=== PATIENT | female | born 2000 | race Caucasian/White ===

== ENCOUNTER 2023-10-07 09:01 | Outpatient (AMB) | payer OTHER, SELFPAY ==
--- NOTE | 2023-10-07 09:23 | MHC.PC.OV ---
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 Is last menstrual period known: Yes Last menstrual period: 10/01/23 Allergies No Known Allergies Allergy (Verified 10/07/23 09:26) Medication List - Last Reconciled 10/07/23 by Marly Velasco PA-C valacyclovir 2,000 mg PO Q12H PRN Tobacco use date assessed: 10/07/23 Dental Screening Dental Screen Date: 10/07/23 Did you have a dental visit in the last 12 months?: Yes Did you have a dental problem in the last 6 months where you did not have access to dental care?: No Was dental information given to patient?: Patient has dentist HPI NPV HPI Details Patient is a 23-year-old female who presents today to reestablish care and for a physical exam. She was last seen by myself last year for right knee pain and has been following with ortho since then. She states that her knee is unstable and she plans to have a follow up soon to discuss next steps. Denies any acute concerns today. Overall feeling well. 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 She is trying to remain active and eat well. Follows with [facility]. [facility] Medical History Recurrent herpes labialis Obesity, Class I, BMI 30-34.9 Family History (Updated 10/07/23 @ 09:29 by Khushbu Alonzo CMA) Maternal Aunt No problems noted. 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 1. Little interest or pleasure in doing things: not at all 2. Feeling down, depressed, or hopeless: not at all 3. Trouble falling or staying asleep, or sleeping too much: not at all 4. Feeling tired or having little energy: not at all 5. Poor appetite or overeating: not at all 6. Feeling bad about yourself - or that you are a failure or have let yourself or your family down: not at all 7. Trouble concentrating on things, such as reading the newspaper or watching television: not at all 8. Moving or speaking so slowly that other people could have noticed. Or the opposite - being so fidgety or restless that you have been moving around a lot more than usual: not at all 9. Thoughts that you would be better off or of hurting yourself in some way: not at all Total score: 0 Depression Screening Interpretation: Negative Depression Screening Done: Yes 85606 - PHQ-9 Billing: Yes Source: Developed by Drs. Jake Mcdonald, Lucero Abrams, Iraj Lopez and colleagues, with an educational tiara from [employer]. Thrive Questionnaire Date Thrive assessed: 10/07/23 I am a: Patient What is your living situation today?: I have a steady place to live Within the past 12 months, did the food you bought not last and you didn't have the money to get more?: Never true Within the past 12 months, did you worry whether your food would run out before you got money to buy more?: Never true Do you have trouble paying for medicines?: No Do you have trouble getting transportation to medical appointments?: No Do you have trouble paying your heating and electricity bill?: No Do you have trouble taking care of your child, family member or friend?: No Do you have trouble with day-to-day activities such as bathing, preparing meals, shopping, managing finances, etc.?: No Are you currently unemployed and looking for a job?: No Are you interested in more education?: No Please select the resources that you would like help with: None Currently or been in a relationship where the following occur: No concerns reported THRIVE Score: 0 AUDIT C Alcohol Use Questionnaire (AUDIT-C) 1. How often do you have a drink containing alcohol?: 2-4 times a month 2. How many drinks containing alcohol do you have on a typical day when you are drinking?: 1 or 2 3. How often do you have six or more drinks on one occasion?: Less than monthly (once a year) Total Score: 3 TROY-7 AMB Questionnaire TROY-7 Date TROY - 7 assessed: 10/07/23 Feeling nervous, anxious, or on edge: 0 = Not at all Not being able to stop or control worryin = Not at all Worrying too much about different things: 0 = Not at all Trouble relaxin = Not at all Being so restless that it is hard to sit still: 0 = Not at all Becoming easily annoyed or irritable: 0 = Not at all Feeling afraid as if something awful might happen: 0 = Not at all Total TROY-7 score (0-4 normal; 5-9 mild; 10-14 moderate; 15-21 severe): 0 Source: Developed by Drs. Jake Mcdonald, Lucero Abrams, Iraj Lopez and colleagues, with an educational tiara from [employer]. TROY-7 Assessment Billing TROY-7 Assessment Tool: TROY-7 Assessment 11452 Physical exam (Primary Care) Vital Signs: Last Vital Signs Temp 98.4 F 10/07/23 09:30 Pulse 54 10/07/23 09:30 Resp 12 10/07/23 09:30 BP 98/70 10/07/23 09:30 Pulse Ox 98 10/07/23 09:30 Oxygen Delivery Method Room Air 10/07/23 09:30 BMI result Body Mass Index 31.8 Tobacco/Smoking Status: Tobacco use Status Tobacco use date assessed 10/07/23 10/07/23 09:32 Patient Tobacco Use Status Never used Tobacco 10/07/23 09:32 e-Cigarette/Vaping Use Never Used 10/07/23 09:32 PHQ-9: PHQ-9 Score PHQ-9: Total score 0 10/07/23 09:35 Depression Screening Interpretation: Negative Thrive Assessment: Date of Thrive Assessment Date Thrive assessed 10/07/23 10/07/23 09:35 Currently or been in a relationship where the following occur: No concerns reported Const Orientation/consciousness: patient oriented x3 HENMT Ears: hearing grossly normal bilaterally and TM's normal bilaterally General nose exam: No nasal polyps present Face and sinus: Yes sinuses nontender Mouth: Normal oral and palatal mucosa present Eyes Pupils: Equal, round and reactive pupils present EOM: EOMs intact bilaterally Neck Neck: Yes full ROM and Yes no lymphadenopathy Thyroid: Thyroid normal Chest Chest palpation & inspection: normal inspection of the chest Resp Auscultation: clear to auscultation bilaterally Cardio Rate: regular rate Rhythm: regular rhythm Heart sounds: S1 normal heart sound present and S2 normal heart sound present Peripheral pulses: Peripheral pulses 2+ throughout GI Other: Soft, nontender Auscultation: normal bowel sounds Rectal Exam - Female: deferred General: Yes no CVA tenderness Back/Spine/Pelvis Other: Nontender Back: no CVA tenderness Skin General skin exam: no rashes or lesions noted Neuro General: patient oriented x3, gait normal, CN's II-XI intact bilaterally and deep tendon reflexes 2+ bilaterally Cranial nerves: Yes Equal, round and reactive pupils present Motor exam (neuro): 5/5 motor strength present throughout Sensory Exam: double simultaneous stimulation for sensation normal Coordination: [id number] test normal and Romberg test negative Extrem General: Yes normal to inspection and Yes full ROM Psych Affect: normal affect Attitude: cooperative Thought process: Normal thought process present Thought content: Normal thought content present Insight: Good insight present (Psych) Judgement: Good judgement present (Psych) Assessment and Plan Assessment & Plan (1) Routine general medical examination at a health care facility: Code(s): Z00.00 - Encounter for general adult medical examination without abnormal findings Plan: reviewed. labs ordered. will follow up pending tests (2) Right knee pain: Code(s): M25.561 - Pain in right knee Qualifiers: Chronicity: chronic Qualified Code(s): M25.561 - Pain in right knee; G89.29 - Other chronic pain Plan: continue follow up with [facility]. Orders: Orders Comprehensive [place]. Panel Fast Today M25.561 - Pain in right knee, Z00.00 - Encounter for general adult medical examination without abnormal findings, Z13.220 - Encounter for screening for lipoid disorders Lipid Panel Today M25.561 - Pain in right knee, Z00.00 - Encounter for general adult medical examination without abnormal findings, Z13.220 - Encounter for screening for lipoid disorders TSH reflex Free T4 Today M25.561 - Pain in right knee, Z00.00 - Encounter for general adult medical examination without abnormal findings, Z13.220 - Encounter for screening for lipoid disorders Vitamin B12 and Folate Today M25.561 - Pain in right knee, Z00.00 - Encounter for general adult medical examination without abnormal findings, Z13.220 - Encounter for screening for lipoid disorders Complete Blood Count Auto Diff Today M25.561 - Pain in right knee, Z00.00 - Encounter for general adult medical examination without abnormal findings, Z13.220 - Encounter for screening for lipoid disorders Medications: New valacyclovir 2,000 mg (2 x 1 gram) PO Q12H 1 day PRN 30 tabs 1RF outbreak Coding Level of Care Code Est Pt Prev Care 18-39y(39250) Diagnoses Routine general medical examination at a health care facility Z00.00 Chronic pain of right knee M25.561; G89.29 Chronicity: chronic Additional Codes TROY-7 Assessment Billing - TROY-7 Assessment Tool: TROY-7 Assessment 63642 ([id number])
[2023-10-07 09:30] VITALS: BP 98/70; PULSE 54; RESP 12; TEMP 36.9; O2SAT 98; BMI 31.8
== END 2023-10-07 10:02 | disposition home or self-care (01) ==
PROVIDERS: PCP Physician Assistant; Visit Provider Physician Assistant
DX: Z00.00 Encounter for general adult medical examination without abnormal findings (principal); M25.561 Pain in right knee; G89.29 Other chronic pain
CPT/HCPCS: 99395

== ENCOUNTER 2023-10-07 10:04 | Outpatient (REF) | payer OTHER, SELFPAY ==
[2023-10-07 10:52] LABS: MANUAL DIFF FLAG NO
[2023-10-07 11:11] LABS: Basophils Absolute Auto 0.1 X10*3/uL (0.0-0.2); Basophils Percent Auto 0.7 % (0-2); Eosinophils Absolute Auto 0.1 X10*3/uL (0.0-0.4); Eosinophils Percent Auto 1.3 % (0-4); Hematocrit 40.2 % (37.0-47.0); Hemoglobin 12.7 g/dl (12.0-16.0); Imm Gran Abs Auto 0.02 X10*3/uL (0.00-0.03); Imm Gran Pct Auto 0.3 % (0.0-0.4); Lymphocytes Absolute Auto 2.2 X10*3/uL (1.2-4.9); Lymphocytes Percent Auto 31.4 % (20-40); Mean Corpuscular HGB Conc 31.6 g/dl (31.0-35.0); Mean Corpuscular Hemoglobin 27.7 pg (27.0-33.0); Mean Corpuscular Volume 87.8 fL (80.0-98.0); Mean Platelet Volume 10.9 fL (9.4-12.3); Monocytes Absolute Auto 0.5 X10*3/uL (0.1-1.2); Monocytes Percent Auto 7.7 % (2-11); Neutrophils Absolute Auto 4.1 x10*3/uL (2.0-8.3); Neutrophils Percent Auto 58.6 % (45-73); Platelet Count 251 X10*3/uL (160-400); Red Blood Count 4.58 X10*6/uL (4.20-5.50); Red Cell Distribution Width 14.4 % (11.0-16.0); White Blood Count 6.9 X10*3/uL (4.8-10.8)
[2023-10-07 11:53] LABS: Alanine Aminotransferase 12 U/L (0-31); Albumin Level 4.8 g/dL (3.5-5.0); Alkaline Phosphatase 66 U/L (39-117); Anion Gap 10 (12-20); Aspartate Amino Transferase 15 U/L (5-31); Blood Urea Nitrogen 8 mg/dL (9-16); Calcium 9.9 mg/dL (8.4-10.2); Carbon Dioxide 28 mmol/L (22-29); Chloride 108 mmol/L (96-108); Cholesterol 142 mg/dL (<200); Estimated Glomerular Filt Rate > 60; Glucose Fasting 83 mg/dL (60-99); HDL Cholesterol 58 mg/dL (>40); LDL Cholesterol Calculated 71 mg/dL (<100); Potassium 3.8 mmol/L (3.3-5.1); Sodium 142 mmol/L (135-145); Total Protein 7.3 g/dL (6.5-8.0); Triglycerides 66 mg/dL (<150)
[2023-10-07 12:08] LABS: TSH reflex Free T4 0.83 uIU/mL (0.32-4.0)
[2023-10-07 12:20] LABS: Folate 11.7 ng/mL (> or = 4.0); Vitamin B12 314 pg/mL (200-900)
== END 2023-10-07 10:05 | disposition home or self-care (01) ==
LOC: HO.WFDLDS 10:04
PROVIDERS: Visit Provider Physician Assistant
DX: Z00.00 Encounter for general adult medical examination without abnormal findings (principal); Z13.220 Encounter for screening for lipoid disorders; M25.561 Pain in right knee
CPT/HCPCS: 36415; 80053; 80061; 82607; 82746; 84443; 85025

== ENCOUNTER 2023-11-17 08:55 | Outpatient (AMB) | payer OTHER, SELFPAY ==
--- NOTE | 2023-11-17 08:56 | MHC.OFFWIV ---
Intake Vital Signs 11/17/23 09:01 Height 5 ft 7 in Weight 208 lb 8 oz BMI 32.7 BP 102/70 Blood Pressure Location Rt brachial Position Sitting Respiration 16 Pulse 51 Pulse Source Pulse Oximeter Temp 97.8 F Temp Source Oral Pulse Oximetry (%) 97 Oxygen Delivery Method Room Air Intake Visit Reasons: est/ sore throat/ testing Intake Note: patient here c/o sore throat. 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 Her symptoms progressively gotten worse yesterday. She notes that she usually feels this way when she has strep throat. She denies any other symptoms. [facility] Medical History Recurrent herpes labialis Obesity, Class I, BMI 30-34.9 Family History (Updated 10/07/23 @ 09:29 by Khushbu Alonzo CMA) Maternal Aunt No problems noted. 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 Current occupational exposures/hazards: No Cognitive needs: No Hearing needs: No Vision needs: No Female Reproductive History Menstrual Date of last menstrual period: 11/17/23 Review of Systems Const Details: Const Denies chills, Denies fatigue, Denies fever(s), Denies headache(s) and Denies weakness ENT Reports as per HPI Resp Denies cough, Denies dyspnea, Denies wheezing and Denies other (shortness of breath) Cardio Denies chest pain, Denies lightheadedness, Denies dyspnea and Denies other (palpitations) Neuro Denies dizziness, Denies headache(s), Denies numbness, Denies tingling and Denies weakness Psych Denies anxiety, Denies depression, Denies memory?loss Endo Denies fatigue Aller/Immun Denies wheezing Physical Exam Vital Signs: Last Vital Signs Temp 97.8 F 11/17/23 09:01 Pulse 51 11/17/23 09:01 Resp 16 11/17/23 09:01 BP 102/70 11/17/23 09:01 Pulse Ox 97 11/17/23 09:01 Oxygen Delivery Method Room Air 11/17/23 09:01 BMI result Body Mass Index 32.7 Const Other: Const General: well developed; No acute distress Nutritional Appearance: well nourished Orientation/consciousness: patient oriented x3 HEENT Head is normocephalic Bilateral ear canal and TM are normal Nasal turbinates and oropharynx are pink and moist. No tonsillar edema or exudates. No petechia Sinuses are nontender with palpation No auricular or cervical lymphadenopathy Eyes General: appearance normal, both eyes and all related structures Pupils: Equal, round and reactive pupils present EOM: EOMs intact bilaterally Resp Effort & Inspection: normal respiratory effort Auscultation: clear to auscultation bilaterally Cardio Rate: regular rate Rhythm: regular rhythm Heart sounds: S1 normal heart sound present, S2 normal heart sound present, no gallops, no murmurs and no rubs Bruits: no abdominal aortic bruits and no carotid bruits Neuro General: patient oriented x3 and gait normal, no focal neuro deficit Cranial nerves: Yes Equal, round and reactive pupils present Psych Affect: normal affect Results AMB Rapid Strep AMB Rapid Strep Negative Last Edit by Indira Medellin on 11/17/23 12:16 Results Reviewed Results Reviewed: Laboratory Last Values Strep Scn Rapid Clinic Negative 11/17/23 09:25 Assessment & Plan Assessment & Plan (1) Pharyngitis: Code(s): J02.9 - Acute pharyngitis, unspecified Plan: Oropharynx is pink and moist. No tonsillar edema or exudates. No petechia Rapid strep test is negative Bilateral ear canal and TM are normal Likely viral infection May take Tylenol ibuprofen for pain or discomfort Adequate hydration encouraged Follow-up with worsening or new symptoms Verbalized understanding and agreed with the treatment plan Patient sent a portal message after her visit, requesting antibiotics. Amoxicillin 500 mg twice daily sent. Orders: Orders AMB Rapid Strep Screen Today Z13.9 - Encounter for screening, unspecified Coding Level of Care Code New Pt Level 3 (20366) Diagnoses Pharyngitis J02.9
[2023-11-17 09:01] VITALS: BP 102/70; PULSE 51; RESP 16; TEMP 36.6; O2SAT 97; BMI 32.7
== END 2023-11-17 09:26 | disposition home or self-care (01) ==
LOC: HO.HMGWIW 08:55
PROVIDERS: PCP Physician Assistant
DX: Z13.9 Encounter for screening, unspecified (principal); J02.9 Acute pharyngitis, unspecified
CPT/HCPCS: 87880; 99203

== ENCOUNTER 2024-08-03 08:28 | Outpatient (AMB) | payer OTHER, SELFPAY ==
--- NOTE | 2024-08-03 08:34 | A.OFFPC_ITS ---
Vital Signs 08/03/24 08:35 Height 5 ft 7 in Weight 197 lb 8 oz BMI 30.9 BP 102/72 Blood Pressure Location Rt brachial Position Sitting Respiration 14 Pulse 57 Pulse Source Pulse Oximeter Pulse Oximetry (%) 97 Oxygen Delivery Method Room Air Intake Visit Reasons: Med Review Intake Note: Discuss focus and concentration Dental Associate Required: No Allergies No Known Allergies Allergy (Verified 08/03/24 08:40) Medication List - Last Reconciled 08/03/24 by Marly Velasco PA-C valacyclovir 2,000 mg (2 x 1 gram) PO Q12H PRN 1 day Tobacco use date assessed: 10/07/23 Dental Screening Dental Screen Date: 08/03/24 Did you have a dental visit in the last 12 months?: Yes Did you have a dental problem in the last 6 months where you did not have access to dental care?: No Was dental information given to patient?: Patient has dentist HPI Med Review HPI Details Patient is a 24-year-old female who presents today with concerns of possible ADD. She states that all of her life she has had difficulty with concentrating and now that she is an adult and working she has a hard time hitting certain guidelines. All throughout school and she had an IEP which allowed her some accommodations for this. She has never been on medication for this but would like to go on something to help her with her productivit. She states that she is stressed because she is very scattered brain and despite making lists, waking up early, having a quiet workspace she still has issues with staying on task. No SI/HI. States that sometimes this does make her feel a bit upset that she is unable to complete certain things and also makes her feel stressed as she feels like she has too much to do. Took an online questionnaire which showed that she had ADD. [facility] Medical History Recurrent herpes labialis Obesity, Class I, BMI 30-34.9 Family History (Updated 10/07/23 @ 09:29 by Khushbu Alonzo CMA) Maternal Aunt No problems noted. 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 1. Little interest or pleasure in doing things: not at all 2. Feeling down, depressed, or hopeless: not at all 3. Trouble falling or staying asleep, or sleeping too much: not at all 4. Feeling tired or having little energy: several days 5. Poor appetite or overeating: not at all 6. Feeling bad about yourself - or that you are a failure or have let yourself or your family down: not at all 7. Trouble concentrating on things, such as reading the newspaper or watching television: several days 8. Moving or speaking so slowly that other people could have noticed. Or the opposite - being so fidgety or restless that you have been moving around a lot more than usual: several days 9. Thoughts that you would be better off or of hurting yourself in some way: not at all Total score: 3 Depression Screening Interpretation: Positive Depression Screening Follow-up: Existing condition and Follow-up Visit Requested Depression Screening Done: Yes 81768 - PHQ-9 Billing: Yes Source: Developed by Drs. Jake Mcdonald, Lucero Abrams, Iraj Lopez and colleagues, with an educational tiara from [employer]. Thrive Questionnaire Date Thrive assessed: 07/21/24 I am a: Patient What is your living situation today?: I have a steady place to live Within the past 12 months, did the food you bought not last and you didn't have the money to get more?: Never true Within the past 12 months, did you worry whether your food would run out before you got money to buy more?: Never true Do you have trouble paying for medicines?: No Do you have trouble getting transportation to medical appointments?: No Do you have trouble paying your heating and electricity bill?: No Do you have trouble taking care of your child, family member or friend?: No Do you have trouble with day-to-day activities such as bathing, preparing meals, shopping, managing finances, etc.?: No Are you currently unemployed and looking for a job?: No Are you interested in more education?: No Please select the resources that you would like help with: None Currently or been in a relationship where the following occur: No concerns reported THRIVE Score: 0 AUDIT C Alcohol Use Questionnaire (AUDIT-C) 1. How often do you have a drink containing alcohol?: Monthly or less 2. How many drinks containing alcohol do you have on a typical day when you are drinking?: 1 or 2 3. How often do you have six or more drinks on one occasion?: Never Total Score: 1 TROY-7 AMB Questionnaire TROY-7 Date TROY - 7 assessed: 08/03/24 Feeling nervous, anxious, or on edge: 1 = Several days Not being able to stop or control worryin = Not at all Worrying too much about different things: 1 = Several days Trouble relaxin = Several days Being so restless that it is hard to sit still: 1 = Several days Becoming easily annoyed or irritable: 0 = Not at all Feeling afraid as if something awful might happen: 0 = Not at all Total TROY-7 score (0-4 normal; 5-9 mild; 10-14 moderate; 15-21 severe): 4 Source: Developed by Drs. Jake Mcdonald, Lucero Abrams, Iraj Lopez and colleagues, with an educational tiara from [employer]. TROY-7 Assessment Billing TROY-7 Assessment Tool: TROY-7 Assessment 26681 Physical exam (Primary Care) Vital Signs: Last Vital Signs Pulse 57 08/03/24 08:35 Resp 14 08/03/24 08:35 BP 102/72 08/03/24 08:35 Pulse Ox 97 08/03/24 08:35 Oxygen Delivery Method Room Air 08/03/24 08:35 BMI result Body Mass Index 30.9 Tobacco/Smoking Status: Tobacco use Status Tobacco use date assessed 10/07/23 08/03/24 08:36 Patient Tobacco Use Status Never used Tobacco 08/03/24 08:36 e-Cigarette/Vaping Use Never Used 08/03/24 08:36 PHQ-9: PHQ-9 Score PHQ-9: Total score 3 08/03/24 08:58 Depression Screening Interpretation: Positive Depression Screening Follow-up: Existing condition and Follow-up Visit Requested Thrive Assessment: Date of Thrive Assessment Date Thrive assessed 07/21/24 08/03/24 08:36 Currently or been in a relationship where the following occur: No concerns reported Const Orientation/consciousness: patient oriented x3 HENMT Ears: hearing grossly normal bilaterally Neck Thyroid: Thyroid normal Lymphatic: no lymphadenopathy noted Resp Auscultation: clear to auscultation bilaterally Cardio Rate: regular rate Rhythm: regular rhythm Heart sounds: S1 normal heart sound present and S2 normal heart sound present GI Inspection: Yes normal to inspection Palpation (GI): Soft to palpation and Other GI palpation findings present (nontender, no cva tenderness) Auscultation: normoactive bowel sounds Rectal Exam - Female: deferred Skin General skin exam: no rashes or lesions noted Neuro General: patient oriented x3, gait normal and no focal motor deficits Results Reviewed Results Reviewed: Laboratory Tests 10/07/23 10:06 WBC 6.9 RBC 4.58 Hgb 12.7 Hct 40.2 Plt Count 251 Sodium 142 Potassium 3.8 Chloride 108 Carbon Dioxide 28 Anion Gap 10 L Creatinine 0.87 Estimated GFR > 60 Fasting Glucose 83 AST 15 ALT 12 Triglycerides 66 Cholesterol 142 LDL Cholesterol, Calc 71 HDL Cholesterol 58 Vitamin B12 314 TSH 0.83 Coding Level of Care Code Est Pt Level 4 (71299) Complex EM visit Add On G2211 Diagnoses ADD (attention deficit disorder) F98.8 Mixed anxiety and depressive disorder F41.8 Additional Codes TROY-7 Assessment Billing - TROY-7 Assessment Tool: TROY-7 Assessment 50608 ([id number]) PHQ-9 - 15430 - PHQ-9 Billing: Yes ([id number]) Assessment & Plan Assessment & Plan (1) ADD (attention deficit disorder): Code(s): F98.8 - Other specified behavioral and emotional disorders with onset usually occurring in childhood and adolescence Category: Medical Plan: Labs ordered today. We will follow up pending test results. We will trial Wellbutrin. Discussed risks and benefits and adverse effects of this medication. We did discuss possibly seeing Behavioral Health but she wants to hold off on this at this point. (2) Mixed anxiety and depressive disorder: Code(s): F41.8 - Other specified anxiety disorders Category: Medical Plan: As above. Orders: Orders Vitamin B12 and Folate Today F98.8 - Other specified behavioral and emotional disorders with onset usually occurring in childhood and adolescence Comprehensive Met. Panel Today F98.8 - Other specified behavioral and emotional disorders with onset usually occurring in childhood and adolescence TSH reflex Free T4 Today F98.8 - Other specified behavioral and emotional disorders with onset usually occurring in childhood and adolescence Complete Blood Count Auto Diff Today F98.8 - Other specified behavioral and emotional disorders with onset usually occurring in childhood and adolescence Medications: New bupropion HCl XL (Wellbutrin XL) 150 mg PO QAM 30 tabs 1RF
[2024-08-03 08:35] VITALS: BP 102/72; PULSE 57; RESP 14; O2SAT 97; BMI 30.9
--- OUTSIDE RECORDS SUMMARY | 2024-08-03 08:42 | XMS_ITS | Data Portability ---
Author Organization [facility], [facility] Address [address] [place] [address] Care Team Providers Care Seo Strategist Name Role Phone RADHA ALLEN Primary Care Provider Assessment Encounter Date Assessment Date Assessment LastModified by Organization Details LastModified Time 01/20/2024 01/20/2024 HISTORY AND PHYSICAL Patient date of :2000 Admitting diagnosis:Right knee ACL graft tear Planned procedure:Right knee arthroscopy with revision ACL reconstruction using autogenous quadriceps Surgeon: Andrew Ivory M.D. HPI:Right knee arthroscopy, revision ACL [id number]- year-old woman status post right knee ACL reconstruction July 1999 complains of instability events, taken to the operating room for arthroscopy with possible revision. Past medical history: Review of systems: Negative Medications:None Allergies: None Past surgical history:Right knee ACL reconstruction Social history: Alcohol use: Social Smoker: Negative PHYSICAL EXAMINATION: The patient is well appearing and in no apparent distress. Alert and oriented x3. Height 5 feet 8 inches Weight 230 pounds Gait: symmetri HEENT: Benign Chest: Clear to auscultation bilaterally Heart: Regular rate and rhythm, no murmurs or gallops Abdomen: Soft and nontender, no masses Neurovascular: Within normal limits Skin: Within normal limits Pertinent extremity exam:Right knee full motion with 1+ Kavitha, soft endpoint DIAGNOSIS:Right knee possible ACL graft tear PLAN:The patient is taken to the operating room for right knee arthroscopy, possible revision ACL reconstruction using quadriceps autograft.Specifi c risks and issues associated with reconstruction of the anterior cruciate ligament were discussed in detail. These include infection, graft failure estimated 4%, need for hardware insertion, DVT or PE, potential need for allograft use, injury to the infrapatellar branch saphenous nerve with resultant numbness. The patient understands the need for activity restriction and rehabilitation services in the postoperative period and understands that noncompliance will likely result in a compromised and results. The patient understands that arthritis will likely develop in the knee with or without reconstruction and that surgery has not been recommended to prevent the development of arthritis. All questions have been answered to the patient's satisfaction and I believe the patient has made an informed choice to proceed with surgery. [email or web address] Not available 01/20/2024 09:54:33 Plan of Treatment Reminders Order Date Submit Date Provider Last Modified By Organization Details Last Modified Time Details Appointments None recorded. Lab None recorded. Referral physical therapist referral - Dx: Grade III/IV changes Patella and Trochlea, Intact ACL Graft. VMO Strengthe arjun, Hip Abductor, Glute Med Strengthe arjun, Quad & Hamstring Stretchin g, Patella Mobilizat ion, Olivo Taping at your discretio n. 2023 024 [email or web address] [place], [address], [address], [place], [address], 4 11:58:12 Procedures None recorded. Surgeries None recorded. Imaging XR, knee, 4 or more view - room 222 right knee 2023 024 [facility], [address], [address], [place], [address], 4 09:00:52 Medication Orders None recorded. Patient TargetsNo targets recorded. Patient InstructionsNo instructions recorded. 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 VMO Strengthening, Hip Abductor, Glute Med Strengthening, Quad & Hamstring Stretching, Patella Mobilization, Olivo Taping at your discretion. Referring Physician: Cade Rai, Orthopedic Surgery, [id number] Encounter Date: 02/10/2024 Results Created Date Observation Date Name Description Value Unit Range Abnormal Flag Note LastModifiedBy Organization Detail LastModifiedTime 11/23/19 24 11/23/2023 XR, knee, 4 or more view http:/ [email or web address] ?Encry pted=s hAaTro YD8dLq bEUv6g %2BXZw aYqtaq 0bqfl% 2Fg9IQ a4ajBk vP9nXo QUaueC m3YtLR FvZlgJ JJ8mAn HZtai3 2x2887 AC0Kra XmCVaX eUC8mr 84%3D INTERFACE [facility] [address], [place], [address], 11/23/2023 09:00:52 11/23/19 24 11/23/2023 XR, knee, 4 or more view [email or web address] ?Encry pted=s hAaTro YD8dLq bEUv6g %2BXZw aYqtaq 0bqfl% 2Fg9IQ a4ajBk vP9nXo QUaueC m3YtLR FvZlgJ JJ8[place] HZtai3 6s4015 AC0Kra XmCVaX eUC8mr 84%3D INTERFACE [facility] [address], [place], [address], 11/23/2023 09:00:54 11/27/19 24 11/12/2019 imagi ng/di agnos tic resul t No observ ation record ed. [email or web address] Not Available 10/30 21:52:25 11/27/19 24 11/27/2022 imagi ng/di agnos tic resul t No observ ation record ed. [email or web address] Not Available 10/30 21:52:37 Result Notes None recorded. Problems Name Problem SNOMED Code Status Onset Date Resolution Date Notes Provider Name and Address Organization Details Recorded Time No complaint s 484276171 Active Status: 'I'; Not Available [facility] 4 09:11:53 Chondroma lacia of bilateral patellas 179525269449 35225 Active 2023 Cade Rai PA-C [address], [place], [address] , [facility] 4 07:11:17 Rupture of anterior cruciate ligament of right knee 602118218496 77796 Active 2023 Cade Rai PA-C [address], [place], [address] , [facility] 4 09:34:40 Chondroma lacia of right patella 964426753356 77670 Active 2023 Cade Rai PA-C [address], [place], [address] , [facility] 4 08:33:35 Sprain of anterior cruciate ligament of knee 735599176 Active 2016 Problem Code: S83.511A ; Problem Code Type: ICD-10; Status: 'A'; Not Available [facility] 4 10:57:41 Problem Notes None recorded. Procedures Surgical History None recorded. Imaging Results Imaging Date Name Status LastModified by [facility] Details LastModified Time 11/23/2023 XR, knee, 4 or more view completed INTERFACE [facility] [address], [place], [address], 11/23/2023 09:00:52 11/23/2023 XR, knee, 4 or more view completed INTERFACE [facility] [address], [place], [address], 11/23/2023 09:00:54 11/12/2019 imaging/diag nostic result completed Information not available 11/27/2023 21:52:25 11/27/2022 imaging/diag nostic result completed Information not available 11/27/2023 21:52:37 Procedure Notes None recorded. Medical Equipment None Reported. Allergies No known drug allergies Medications Name Sig Start Date Stop Date Status Note LastModified by Organization Details LastModified Time amoxicillin 500 mg capsule active Not Available Not Available Not Available aspirin 325 mg tablet Take 1 tablet every day by oral route. 2023 active Not Available Not Available Not Avai lable benzonatate 200 mg capsule 11/22 completed Not Available Not Available Not Available valacyclovi r 1 gram tablet TAKE 2 TABLETS (2000 MG) BY MOUTH EVERY 12 HOURS NEEDED FOR OUTBREAK FOR ONE DAY active Not Available Not Available No t Available penicillin V potassium 500 mg tablet 01/13 completed Not Available Not Available Not Available aspirin 325 mg tablet,adam yed release TAKE 1 TABLET BY MOUTH ONCE DAILY active Not Available Not Available No t Available cephalexin 500 mg capsule TAKE 1 CAPSULE BY MOUTH TWICE DAILY FOR 10 DAYS 11/22 completed Not Available Not Available Not Available oxycodone 5 mg tablet TAKE 1 TABLET BY MOUTH EVERY 4 TO 6 HOURS NEEDED FOR 7 DAYS FOR POSTOPERA TIVE PAIN active Not Available Not Available No t Available oxycodone HCl-oxycodo ne-ASA 1-2 tabs q 4-6 hrs prn pain X 2 days and reduce to 1 tab q 4-6 hrs prn pain for the next 6 days. 11/22 completed Statu s: 'Curr ent'; Not Available Not Available Not Available Vitals Date Recorded Body height Body mass index (BMI) Body weight Provider Name and Address Organization Details Last Updated DateTime 11/23/2023 172.72 cm 35 kg/m2 807020.25 g Cade Rai PA-C [address] [facility] [address], [place], [address], [facility] 11/23/2023 08:50:00 Date Recorded Body height Body mass index (BMI) Body weight Heart rate Body temperature Systolic blood pressure Diastolic blood pressure Provider Name and Address Organization Details Last Updated DateTime 172.72 cm 35 kg/m2 656876. 25 g 72 /min 97.2 [degF] 132 mm[Hg] 77 mm[Hg] Luisa Lanza [facility] 09:16:41 Date Recorded Body height Body mass index (BMI) Body weight Body temperature Provider Name and Address Organization Details Last Updated DateTime 02/10/2024 172.72 cm 35 kg/m2 966671.25 g 98.1 [degF] Cade Rai PA-C [address], [facility] [place], [address] , [facility] 02/10/2024 08:08:10 Date Recorded Body height Body mass index (BMI) Body weight Body temperature Provider Name and Address Organization Details Last Updated DateTime 04/11/2024 172.72 cm 35 kg/m2 034145.25 g 98 [degF] Cade Rai PA-C [address], [place], [address] , [place] [facility] 04/11/2024 08:09:35 Social History None recorded. Functional Status None recorded. Mental Status None recorded. Family History Nothing Reported. Medical History No medical history recorded. Gynecological HistoryNo gynecological history recorded. Obstetrics History GPAL:G 0 P 0 0 0 0 Past Encounters Encounter ID Performer Location Encounter Start Date Encounter Closed Date Diagnosis/Indication Diagnosis SNOMED-CT Code Diagnosis ICD10 Code Diagnosis Note [id number] SHILPA [facility] [address] [place] [address] 11/23/2023 08:37:45 12/09/2023 12:18:17 Chondromalacia of bilateral patellas [id number] 6275251 M22.41 Rupture of anterior cruciate ligament of right knee 9489990675 2246192 S83.511A [id number] MD Yahaira Thacker [address] [place] [address] 01/20/2024 09:02:16 02/11/2024 15:34:25 Complete tear, knee, anterior cruciate ligament 036409318 S83.511D [id number] SHILPA [facility] [address] [place] [address] 02/10/2024 07:50:16 03/01/2024 11:58:12 Chondromalacia of right patella 5244796624 5474269 M22.41 [id number] Cade Rai PA-C [facility] [address] [place] [address] 04/11/2024 08:03:33 04/25/2024 16:25:51 History of arthroscopy of knee joint 233345820 Z98.890 Health Concerns Section Related Observation LastModified by Organization Detai ls LastModified Time None Recorded Concern Status LastModified by Organization Details LastModified Time None Recorded Advance Directives Directive None Recorded Payers Encounter Date Sequence Insurance Name Policy Number Policy Oden Covered Member ID Oden Member ID Guarantor Name 11/23/2023 1 [employer] [place] [id number] Christopher L Wood [id number] Wood 01/20/2024 1 [employer] [place] [id number] Christopher L Wood [id number] Christopher L Wood 02/10/2024 1 [employer] [place] [id number] Christopher L Wood [id number] Christopher L Wood 04/11/2024 1 [employer] [place] [id number] Christopher L Wood [id number] [address] Notes Date Note Type Note Provider Name and Address Organization Details Recorded Time 11/23/2023 text/html I am seeing the patient today under the supervision of Dr. Pennington who was available but who did not see the patient. HPI: Rebecca comes in today for evaluation regarding her right knee. She is well-known to me from her original injuries when she was in high school in 2017 underwent hamstring ACL reconstruction Dr. Ivory 2016. She reports an episode last fall where she was playing softball planted pivoted felt the knee shift and had a significant mount of swelling. She was evaluated had an MRI scan done and has modified her activities since. She continues to report episodes of giving way, intermittent swelling and intermittent pain. MRI findings: Previously obtained in October 2022 findings independently reviewed include attenuation of the ACL with fluid along the lateral wall worrisome for ACL tear, posttraumatic arthrosis, degenerative tearing medial meniscus with marginal osteophytes involving the notch. PMH: Unremarkable Family Hx: Negative Meds: valacyclovir Allergies: NKDA ROS: Negative Social Hx: Negative PHYSICAL EXAMINATION: The patient is well appearing and in no apparent distress. Alert and oriented x3. Gait is symmetric. EXAM: HEENT is unremarkable Heart regular rate and rhythm without murmurs rubs gallops Abdomen soft nontender nondistended positive bowel sounds. Lungs are clear bilaterally without rales rhonchi or wheezes Peripheral, vascular, lymphatic examination, skin, neurological, coordination, reflexes, sensation are within normal limits. Examination of the right knee demonstrates motion 0 to 130 degrees well-healed incision trace effusion Kavitha 2+ with pivot shift, no laxity valgus varus stressing, medial joint line tenderness. Diagnostic x-rays ordered and reviewed today of the right knee findings include tunnels and hardware in good position, small marginal osteophytes noted. IMPRESSION: Retear ACL graft right knee PLAN: Today lengthy conversation held with patient regarding in my opinion the need to go forward to revision ACL surgery. We talked about autograft options including quad tendon versus patella tendon ultimately I decision will be deferred to Dr. Ivory and his discretion. All questions answered patient satisfaction she would like to go forward with sometime in January there are no findings at today's exam should prevent her from going forward with surgery outlined. [employer] speech recognition char filter tank tender head software was used to create portions of this document. An attempt at proofreading has been made to minimize errors. Please call for corrections. Cade Rai PA-C [address], [place], [address], [facility] 11/23/2023 09:35:11 02/10/2024 text/html I am seeing the patient today under the supervision of Dr. Ivory who was available but who did not see the patient. HISTORY OF PRESENT ILLNESS The patient returns for initial postop evaluation status post right knee Arthroscopy. Patient reports no initial adverse complications during the perioperative/postop erative course. They are pleased with their initial progress. Operative findings: Intact ACL graft, grade 3/4 changes involving patella and trochlea, intact medial lateral meniscus. PHYSICAL FINDINGS The patient ambulates with crutches, mild antalgic gait, 1+ effusion. Incision is healing well. Sutures Removed, steri's applied. No sign of infection or DVT. ASSESSMENT Status post right knee Arthroscopy PLAN Discussed plans for slow return to normal activities over 4-6 weeks. Continue modifications activities utilizing ice, oral NSAIDs as clinically indicated. Benefits of home physical therapy described and outlined in detail for the patient today. Recommendation is made for follow-up care in 6 weeks' time if patient remains symptomatic. Cade Rai PA-C [address], [place], [address], [facility] 02/10/2024 13:50:24 04/11/2024 text/html I am seeing the patient today under the supervision of Dr. Pennington who was available but who did not see the patient. Surgery: Right knee arthroscopy, chondroplasty patella and trochlea. Interval History: Patient returns today for follow-up evaluation reporting substantial improvements she is very pleased with her physical therapy she has been able to do light exercise including spinning without difficulty. Past family, medical, social history and review of systems have been reviewed and updated on the medical history sheet saved to the patient's chart. A 12-point review of systems is negative x12 except as noted above and/or on the medical history sheet. Examination: Examination of the left knee demonstrates full range of motion mild crepitance no effusion redness or warmth. Impression: Status post left knee arthroscopy making excellent progress Plan: Reassurance given went over do's and don'ts specifically recommended slow transition back to activities. We talked briefly about chondral pentecostal type procedures in the future if symptoms continue to be problematic but would only do this on elective basis in the future. [facility] speech recognition char filter tank tender head software was used to create portions of this document. An attempt at proofreading has been made to minimize errors. Please call for corrections. Cade Rai PA-C [address], [place], [address], [facility] 04/11/2024 08:38:02 OBGyn Episode No OBEpisode recorded.
--- OUTSIDE RECORDS SUMMARY | 2024-08-03 08:42 | XMS_ITS | Encounter Summary ---
Author Organization [facility] Address [address] [place] [address] Phone Care Team Providers Care Manager Bench Name Role Phone Berta Donaldson NP Primary Care Provider [phone] Encounter Details Date Type Department Care Team (Late st Contact Info) Description 08/16/2017 Conversion [facility]counter [facility] [id number] [place] [address] Social History Tobacco Use Types Packs/Day Years Used Date Smoking Tobacco: Never Assessed Comments Unknown Sex and Gender Information Value Date Recorded Sex Assigned at Not on file Legal Sex Female 6:14 PM EDT Gender Identity Not on file Sexual Orientation Not on file documented as of this encounter Plan of Treatment Not on file documented as of this encounter Visit Diagnoses Not on filedocumented in this encounter Care Teams Manager Bench Relationship Specialty Start Date End Date Berta Donaldson NP [address] [place] [address] PCP - General Pediatrics 09/23/18 05/10/24 documented as of this encounter
--- OUTSIDE RECORDS SUMMARY | 2024-08-03 08:42 | XMS_ITS | Clinical Summary ---
Author Organization [facility] Address [address] [place] [id number] Phone Care Team Providers Care Lidar Scientist Name Role Phone Unavailable Primary Care Provider Unavailabl e Allergies No known active allergies Medications Ibuprofen (ADVIL PO) Take by mouth. Acti ve fluticasone (Flonase) 50 MCG/ACT nasal sprayIndication s:Non-recurrent acute serous otitis media of both ears Administer 1 spray into each nostril daily. 1 Units 5 0 Active Additional Information Patient not taking.Reported on 02/20/2020 Active Problems Problem Noted Date Diagnosed Date BMI 32.0-32.9,adult 02/20/2020 Overview (02/20/2020): Has lost some weight Assessment & Plan (02/20/2020 10:19 AM EST): Healthy eater for the most part, needs to exercise some portion control ACL laxity, right 11/11/2019 Overview (11/11/2019): Surgery 2017 [facility] 11/16 - recurrent patellofemoral arthrosis w/ lateral tilt, concern for ACL instability, obtain MRI Assessment & Plan (02/20/2020 10:14 AM EST): Doing well stable, S/P surgery, just had a checkup. Immunizations Immunization Administration Dates Next Due DTaP 08/13/2004, 1,02/14/2000,12/09,1999 HPV, Quadrivalent 07/05/2012,02/04/2012,12/04/19 12 Hep A, Adult 09/24/2018 Hep A, ped/adol 01/13/2017 Hep B, ped/adol 05/05/2000,1999,1999 Hib (PRP-T) 03/08/2001, 0,1999,10/03 IPV 08/13/2004, 1,1999,10/03 Influenza, injectable, quadrivalent 12/04/2011 Influenza, injectable, quadr ivalent, preservative free 02/20/2020,12/15/2014,12/13/2012 Influenza, intranasal, quadrivalent 12/14/2013 MMR 09/01/2003,08/14/2000 Meningococcal Conj (Menactra) MCV4P 01/13/2017,0 08/02/2010 Pneumococcal Conjugate 03/08/2001,1999,1999,10/03 Tdap 08/02/2010 Varicella 12/24/2007,08/14/2000 Family History Medical History Relation Name Comments No Known Problems Brother Iain Hemochromatosis Maternal Grandfather Breast cancer Maternal Grandmother Skin cancer Maternal Grandmother Heart disease (Premature) Paternal Grandfather Uterine cancer Paternal Grandmother Relation Name Status Comments Brother Iain Alive Father Philippe Alive healthy age: 47 Father's Brother Alive Healthy Maternal Grandfather Alive Maternal Grandmother Alive Mother Michelle Alive healthy age: 45 Paternal Grandfather Alive CHF, CA D and has a pace maker age: 65 Paternal Grandmother Alive uterin CA just finished chemo and radiation age: 65 Social History Tobacco Use Types Packs/Day Years Used Date Smoking Tobacco: Never Smokeless Tobacco: Never Alcohol Use Standard Drinks/Week Comments Never 0 (1 standard drink = 0.6 oz pur e alcohol) Hunger/Food Answer Date Recorded In the last 12 months, did y ou or your family ever eat less than you felt you should because there wasn't enough money for food? No 02/20/2020 Stable Housing Answer Date Recorded Are you worried that in the next 2 months you may not have stable housing? No 02/20/2020 Transportation Concerns Answer Date Rec orded In the last 12 months, have you or your family ever had to go without healthcare because you didn't have a way to get there? No 02/20/2020 Hazards in Home Answer Date Recorded Think about the place you li ve. Do you have problems with any of the following? Pests (mice or roaches), mold, no/not working smoke detectors, water leaks, no window guards. No 2019 Financing Utilities Answer Date Recorde d In the last 12 months, has t he electric, gas, oil, or water company threatened to shut off your services in your home? No 02/20/2020 Safety at Home Answer Date Recorded Are you or your family worried about feeling saf e in your home? No 02/20/2020 Outside Support Answer Date Recorded Do you feel that you need mo re support from other people or programs to help you care for yourself or your family? No 02/20/2020 Understanding Health Concerns Answer Da te Recorded Do you need help understandi ng your or your child's healthcare needs (diagnosis, medications, plan, etc.)? No 02/20/2020 Financing Health Concerns Answer Date R ecorded In the last 12 months, was t here a time when your child needed to see a doctor or get medications or supplies but could not because of cost? No 02/20/2020 Missing School or Work Answer Date Scott rded Did you or your child miss s chool or work because of a health problem that could have been avoided? No 02/20/2020 Comments No Sex and Gender Information Value Date Recorded Sex Assigned at Not on file Legal Sex Female 6:14 PM EDT Gender Identity Not on file Sexual Orientation Not on file Last Filed Vital Signs Vital Sign Reading Time Taken Comments Blood Pressure 120/70 02/20/2020 9:03 AM EST Pulse - - Temperature 36.7 ??C (98 ??F) 05/12/2019 4:29 PM EST Respiratory Rate - - Oxygen Saturation - - Inhaled Oxygen Concentration - - Weight 99.9 kg (220 lb 3.2 oz) 02/20/2020 9:03 A M EST Height 174 cm (5' 8.5 ) 02/20/2020 9:03 AM EST Body Mass Index 32.99 02/20/2020 9:03 AM EST Plan of Treatment Health Maintenance Due Date Last Done Comments DTaP,Tdap,and Td Vaccines (7 - Td or Tdap) 08/02/2020 08/02/2010, 08/13/2004, 03/08/2001, Additional history exists Influenza Vaccines (#1) 2023 02/20/20 20, 12/15/2014, 12/14/2013, Additional history exists COVID-19 Vaccine ( season) 2023 03/05/2021, 07/14/2020, 06/23/2020 Hepatitis B Vaccines Completed 05/05/2000, 1999, 1999 HIB Vaccines Completed 03/08/2001, 01/28, 1999, Additional history exists Pneumococcal Vaccine Completed 03/08/2001, 02/08/2000, 1999, Additional history exists MMR Vaccines Completed 09/01/2003, 08/14/2000 IPV Vaccines Completed 08/13/2004, 08/2000, 1999, Additional history exists Varicella Vaccines Completed 12/24/2007, 08/14/2000 HPV Vaccines Completed 07/05/2012, 09/2011, 12/04/2011 Meningococcal Vaccine Completed 01/13/2017, 011 Hepatitis A Vaccines Completed 09/24/2018, 01/14/20 17 Men B Vaccine Aged Out No longer elig heidele based on patient's age to complete this topic Procedures * Due to [facility] law, this organization might not be sharing sensitive test results. Procedure Name Priority Date/Time Associated Diagnosis Comments CHLAMYDIA AND GONORRHEA, AMPLIFIED Routine 02/20/2020 9:35 AM EST Encounter for screening examination for sexually transmitted disease from Last 3 Months or Most Recently Relevant to Health Maintenance Results * Due to [place] [employer] law, this organization might not be sharing sensitive test results. * Chlamydia and Gonorrhoea, Amplified (02/20/2020 9:35 AM EST) Chlamydia Trachomatis, DNA Probe NEGATIVE (NEG) [facility] Comment: No Chlamydia Trachomatis RNA detected in this patient's sample ? (REFERENCE RANGE/NORMAL VALUE: NOT DETECTED) ? Note: This test uses ip network architect- mediated amplification method to detect rRNA from C. Trachomatis URINE GC AMP PROBE NEGATIVE (NEG) [facility] Comment: No Neisseria Gonorrhoeae RNA detected in this patient's sample ? (REFERENCE RANGE/NORMAL VALUE: NOT DETECTED) ? NOTE: This test uses ip network architect-mediated amplification method to detect rRNA from N.Gonorrhoeae. A negative result does not preclude infection. In the case of a negative urine result, testing of an endocervical(female) or urethral (male) specimen is recommended if there is high clinical suspicion of infection. Due to very high sensitivity of Nucleic Acid Amplification Test, false positive results may occur. Therefore, specimen handling is extremely important. In patients in whom the disease is unlikely, additional sample for testing should be considered after an initial positive result. The performance characteristics of this test have not been evaluated in children. The Aptima Combo2 assay is not intended for the evaluation of suspected sexual abuse or for other medico-legal indications. The ordering provider should assess if the patient had consensual sex without risk of sexual abuse. Consult the [facility] if needed. Contact phone number . Therapeutic failure or success cannot be determined with the Aptima Combo2 assay since nucleic acid may persist following appropriate antimicrobial therapy. The Centers for Disease Control and Prevention (CDC) recommends confirmatory retesting using culture or a different nucleic acid amplification test when positive results occur, if indicated. Testing performed or reported by [facility], a Service of [facility], [address] [place] [id number] Scottie Baig MD, Observation Nurse Urine (Urine) 02/20/2020 9:3 5 AM EST 02/20/2020 8:52 PM EST us Cassidy Garner MD LAB MICROBIOLOGY - GENERAL O RDERABLES Final Result [facility] from Last 3 Months or Most Recently Relevant to Health Maintenance Insurance [employer] [place]
== END 2024-08-03 09:01 | disposition home or self-care (01) ==
LOC: HO.HMCFM 08:29
PROVIDERS: PCP Physician Assistant; Visit Provider Physician Assistant
DX: F98.8 Other specified behavioral and emotional disorders with onset usually occurring in childhood and adolescence (principal); F41.8 Other specified anxiety disorders

== ENCOUNTER → 2024-08-03 08:28 | Outpatient (BNVA) | payer OTHER, SELFPAY | PROVIDERS: PCP Physician Assistant; Visit Provider Physician Assistant | DX: Z13.89 Encounter for screening for other disorder (principal) ==

== ENCOUNTER 2024-08-03 08:56 | Outpatient (REF) | payer OTHER, SELFPAY ==
--- OUTSIDE RECORDS SUMMARY | 2024-08-03 09:23 | XMS_ITS | Encounter Summary ---
Author Organization [facility] Address [address] [place] [address] Phone Care Team Providers Care Instructional Media Services Technician Name Role Phone Berta Donaldson NP Primary Care Provider [phone] Encounter Details Date Type Department Care Team (Late st Contact Info) Description 08/16/2017 [facility]counter [facility] [id number] [place] [id number] Social History Tobacco Use Types Packs/Day Years [...] on filedocumented in this encounter Care Teams Instructional Media Services Technician Relationship Specialty Start Date End Date Berta Donaldson NP [address] [place] [address] PCP - General Pediatrics 09/23/18 05/10/24 documented as of this encounter
[2024-08-03 11:15] LABS: MANUAL DIFF FLAG NO
[2024-08-03 11:30] LABS: Basophils Absolute Auto 0.1 X10*3/uL (0.0-0.2); Basophils Percent Auto 1.2 % (0-2); Eosinophils Absolute Auto 0.1 X10*3/uL (0.0-0.4); Eosinophils Percent Auto 2.4 % (0-4); Hematocrit 37.3 % (37.0-47.0); Hemoglobin 12.4 g/dl (12.0-16.0); Imm Gran Abs Auto 0.01 X10*3/uL (0.00-0.03); Imm Gran Pct Auto 0.2 % (0.0-0.4); Lymphocytes Percent Auto 38.6 % (20-40); Mean Corpuscular HGB Conc 33.2 g/dl (31.0-35.0); Mean Corpuscular Volume 87.4 fL (80.0-98.0); Mean Platelet Volume 10.6 fL (9.4-12.3); Monocytes Absolute Auto 0.4 X10*3/uL (0.1-1.2); Monocytes Percent Auto 7.8 % (2-11); Neutrophils Absolute Auto 2.5 x10*3/uL (2.0-8.3); Neutrophils Percent Auto 49.8 % (45-73); Platelet Count 220 X10*3/uL (160-400); Red Blood Count 4.27 X10*6/uL (4.20-5.50); Red Cell Distribution Width 14.1 % (11.0-16.0); White Blood Count 5.1 X10*3/uL (4.8-10.8)
[2024-08-03 11:59] LABS: Alanine Aminotransferase 12 U/L (0-31); Albumin Level 4.3 g/dL (3.5-5.0); Alkaline Phosphatase 57 U/L (39-117); Anion Gap 11 (12-20); Aspartate Amino Transferase 19 U/L (5-31); Bilirubin Total 0.8 mg/dL (0.0-1.0); Blood Urea Nitrogen 10 mg/dL (9-16); Calcium 9.4 mg/dL (8.4-10.2); Carbon Dioxide 27 mmol/L (22-29); Chloride 108 mmol/L (96-108); Estimated Glomerular Filt Rate > 60; Glucose Random 87 mg/dL (60-115); Potassium 3.6 mmol/L (3.3-5.1); Sodium 142 mmol/L (135-145); Total Protein 6.7 g/dL (6.5-8.0)
[2024-08-03 12:17] LABS: TSH reflex Free T4 1.18 uIU/mL (0.32-4.0)
[2024-08-03 12:18] LABS: Folate 9.7 ng/mL (> or = 4.0); Vitamin B12 335 pg/mL (200-900)
== END 2024-08-03 08:57 | disposition home or self-care (01) ==
LOC: HO.WFDLDS 08:56
PROVIDERS: Visit Provider Physician Assistant
DX: F98.8 Other specified behavioral and emotional disorders with onset usually occurring in childhood and adolescence (principal); F41.8 Other specified anxiety disorders
CPT/HCPCS: 36415; 80053; 82607; 82746; 84443; 85025; 96127

== ENCOUNTER 2024-09-01 08:44 | Outpatient (AMB) | payer OTHER, SELFPAY ==
--- NOTE | 2024-09-01 08:50 | MHC.PC.OV ---
Vital Signs 09/01/24 08:52 Height 5 ft 7 in Weight 198 lb 8 oz BMI 31.1 BP 110/76 Blood Pressure Location Rt brachial Position Sitting Respiration 14 Pulse 52 Pulse Source Pulse Oximeter Pulse Oximetry (%) 98 Oxygen Delivery Method Room Air Intake Visit Reasons: med check Intake Note: Medication follow up Skate Shop Attendant Required: No Allergies No Known Allergies Allergy (Verified 09/01/24 08:52) Tobacco use date assessed: 09/01/24 Dental Screening Dental Screen Date: 09/01/24 Did you have a dental visit in the last 12 months?: Yes Did you have a dental problem in the last 6 months where you did not have access to dental care?: No Was dental information given to patient?: Patient has dentist HPI med check HPI Details Patient is a 24-year-old female who presents today for a follow up. Psych: Recently started on Wellbutrin 150 mg daily for ADD symptoms, anxiety and depression. She says that she notices no improvement. She really needed the medication help her with concentration. 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 No SI/HI. PFSH Medical History Recurrent herpes labialis Obesity, Class I, BMI 30-34.9 Family History (Updated 10/07/23 @ 09:29 by Khushbu Alonzo CMA) Maternal Aunt No problems noted. 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 Current occupational exposures/hazards: No Cognitive needs: No Hearing needs: No Vision needs: No Questionnaire Thrive Questionnaire Date Thrive assessed: 07/21/24 I am a: Patient What is your living situation today?: I have a steady place to live Within the past 12 months, did the food you bought not last and you didn't have the money to get more?: Never true Within the past 12 months, did you worry whether your food would run out before you got money to buy more?: Never true Do you have trouble paying for medicines?: No Do you have trouble getting transportation to medical appointments?: No Do you have trouble paying your heating and electricity bill?: No Do you have trouble taking care of your child, family member or friend?: No Do you have trouble with day-to-day activities such as bathing, preparing meals, shopping, managing finances, etc.?: No Are you currently unemployed and looking for a job?: No Are you interested in more education?: No Please select the resources that you would like help with: None Currently or been in a relationship where the following occur: No concerns reported THRIVE Score: 0 AUDIT C Alcohol Use Questionnaire (AUDIT-C) 1. How often do you have a drink containing alcohol?: Monthly or less 2. How many drinks containing alcohol do you have on a typical day when you are drinking?: 1 or 2 3. How often do you have six or more drinks on one occasion?: Never Total Score: 1 TROY-7 AMB Questionnaire TROY-7 Date TROY - 7 assessed: 08/03/24 Source: Developed by Drs. Jake Mcdonald, Lucero Abrams, Iraj Loepz and colleagues, with an educational tiara from [employer]. Physical exam (Primary Care) Vital Signs: Last Vital Signs Pulse 52 09/01/24 08:52 Resp 14 09/01/24 08:52 BP 110/76 09/01/24 08:52 Pulse Ox 98 09/01/24 08:52 Oxygen Delivery Method Room Air 09/01/24 08:52 BMI result Body Mass Index 31.1 Tobacco/Smoking Status: Tobacco use Status Tobacco use date assessed 10/07/23 08/03/24 08:36 Patient Tobacco Use Status Never used Tobacco 09/01/24 08:56 e-Cigarette/Vaping Use Never Used 09/01/24 08:56 Thrive Assessment: Date of Thrive Assessment Date Thrive assessed 07/21/24 08/03/24 08:36 Currently or been in a relationship where the following occur: No concerns reported Const Orientation/consciousness: patient oriented x3 HENMT Ears: hearing grossly normal bilaterally Neck Thyroid: Thyroid normal Lymphatic: no lymphadenopathy noted Resp Auscultation: clear to auscultation bilaterally Cardio Rate: regular rate Rhythm: regular rhythm Heart sounds: S1 normal heart sound present and S2 normal heart sound present GI Inspection: Yes normal to inspection Palpation (GI): Soft to palpation and Other GI palpation findings present (nontender, no cva tenderness) Auscultation: normoactive bowel sounds Rectal Exam - Female: deferred Skin General skin exam: no rashes or lesions noted Neuro General: patient oriented x3, gait normal and no focal motor deficits Coding Level of Care Code Est Pt Level 3 (78345) Diagnoses ADD (attention deficit disorder) F98.8 Assessment & Plan Assessment & Plan (1) ADD (attention deficit disorder): Code(s): F98.8 - Other specified behavioral and emotional disorders with onset usually occurring in childhood and adolescence Category: Medical Plan: Discontinue Wellbutrin Referral to the ADD center of [facility] We will try Vyvanse. Discussed risks and benefits and adverse effects of this medication. She will do a short term follow up. Orders: Referrals Behavioral Health Referral F98.8 - Other specified behavioral and emotional disorders with onset usually occurring in childhood and adolescence Medications: New lisdexamfetamine (Vyvanse) Partial Fill upon patient request. 30 mg PO QAM 30 days 30 caps 0RF Refilled valacyclovir 2,000 mg (2 x 1 gram) PO Q12H 1 day PRN 30 tabs 1RF outbreak Discontinued bupropion HCl XL (Wellbutrin XL) Discontinued Reason: Doctor's Order 150 mg PO QAM 30 tabs 1RF
[2024-09-01 08:52] VITALS: BP 110/76; PULSE 52; RESP 14; O2SAT 98; BMI 31.1
--- OUTSIDE RECORDS SUMMARY | 2024-09-01 09:13 | XMS_ITS | Clinical Summary ---
Author Organization [facility] Address [address] [place] [id number] Phone Care Team Providers Care Lead Data Architect Name Role Phone Unavailable Primary Care Provider [...] complete this topic Procedures * Due to [facility] law, this organization might not be sharing sensitive test results. Procedure Name Priority Date/Time Associated Diagnosis Comments CHLAMYDIA AND GONORRHEA, AMPLIFIED Routine 02/20/2020 9:35 AM EST Encounter for screening examination for sexually transmitted disease from Last 3 Months or Most Recently Relevant to Health Maintenance Results * Due to [place] [employer] law, this organization might not be sharing sensitive test results. * Chlamydia and Gonorrhoea, Amplified (02/20/2020 9:35 AM EST) Chlamydia Trachomatis, DNA Probe NEGATIVE (NEG) [facility] Comment: No Chlamydia Trachomatis RNA detected in this patient's sample ? (REFERENCE RANGE/NORMAL VALUE: NOT DETECTED) ? Note: This test uses fresh food manager- mediated amplification method to detect rRNA from C. Trachomatis URINE GC AMP PROBE NEGATIVE (NEG) [facility] Comment: No Neisseria Gonorrhoeae RNA detected in this patient's sample ? (REFERENCE RANGE/NORMAL VALUE: NOT DETECTED) ? NOTE: This test uses fresh food manager-mediated amplification method to detect rRNA from N.Gonorrhoeae. [...] without risk of sexual abuse. Consult the [facility] if needed. Contact phone number . Therapeutic failure or success cannot be determined with the Aptima Combo2 assay since nucleic acid may persist following appropriate antimicrobial therapy. The Centers for Disease Control and Prevention (CDC) recommends confirmatory retesting using culture or a different nucleic acid amplification test when positive results occur, if indicated. Testing performed or reported by [facility], a Service of [facility], [address] [place] [id number] Scottie Baig MD, Rcis Urine (Urine) 02/20/2020 9:3 5 AM EST 02/20/2020 8:52 PM EST us Cassidy Garner MD LAB MICROBIOLOGY - GENERAL O RDERABLES Final Result [facility] from Last 3 Months or Most Recently Relevant to Health Maintenance Insurance [employer] [employer] [place] [facility] Address: [facility] [address] [place] [address]
== END 2024-09-01 09:10 | disposition home or self-care (01) ==
LOC: HO.HMCFM 08:45
PROVIDERS: PCP Physician Assistant; Visit Provider Physician Assistant
DX: F98.8 Other specified behavioral and emotional disorders with onset usually occurring in childhood and adolescence (principal)

== ENCOUNTER → 2024-09-01 08:44 | Outpatient (BNVA) | payer OTHER, SELFPAY | PROVIDERS: PCP Physician Assistant; Visit Provider Physician Assistant | DX: Z13.89 Encounter for screening for other disorder (principal) ==

== ENCOUNTER 2024-10-13 08:49 | Outpatient (AMB) | payer OTHER, SELFPAY ==
--- NOTE | 2024-10-13 08:54 | A.OFFPC_ITS ---
Vital Signs 10/13/24 08:55 Height 5 ft 7 in Weight 194 lb 6 oz BMI 30.4 BP 108/68 Blood Pressure Location Rt brachial Position Sitting Respiration 14 Pulse 68 Pulse Source Pulse Oximeter Temp 98.8 F Temp Source Oral Pulse Oximetry (%) 97 Oxygen Delivery Method Room Air Intake Visit Reasons: med f/u Intake Note: Medication follow up Junior Network Administrator Required: No Allergies No Known Allergies Allergy (Verified 10/13/24 08:54) Medication List - Last Reconciled 10/13/24 by Marly Velasco PA-C lisdexamfetamine (Vyvanse) 30 mg PO QAM 30 days valacyclovir 2,000 mg (2 x 1 gram) PO Q12H PRN 1 day Tobacco use date assessed: 10/13/24 Dental Screening Dental Screen Date: 09/01/24 HPI med f/u HPI Details Patient is a 24-year-old female who presents today for a follow up. Psych: Recently started on Vyvanse 30 mg and feels that this is very helpful. She does feel that it is wearing off partway through the day. no significant appetite suppression. bp wnl. Previously trialed Wellbutrin what she found ineffective. No mood changes. Feels anxiety depression well-controlled. No SI/HI. PFSH Medical History Recurrent herpes labialis Obesity, Class I, BMI 30-34.9 Family History (Updated 10/07/23 @ 09:29 by Khushbu Alonzo CMA) Maternal Aunt No problems noted. 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 Current occupational exposures/hazards: No Cognitive needs: No Hearing needs: No Vision needs: No Questionnaire Thrive Questionnaire Date Thrive assessed: 07/21/24 I am a: Patient What is your living situation today?: I have a steady place to live Within the past 12 months, did the food you bought not last and you didn't have the money to get more?: Never true Within the past 12 months, did you worry whether your food would run out before you got money to buy more?: Never true Do you have trouble paying for medicines?: No Do you have trouble getting transportation to medical appointments?: No Do you have trouble paying your heating and electricity bill?: No Do you have trouble taking care of your child, family member or friend?: No Do you have trouble with day-to-day activities such as bathing, preparing meals, shopping, managing finances, etc.?: No Are you currently unemployed and looking for a job?: No Are you interested in more education?: No Please select the resources that you would like help with: None Currently or been in a relationship where the following occur: No concerns reported THRIVE Score: 0 AUDIT C Alcohol Use Questionnaire (AUDIT-C) 1. How often do you have a drink containing alcohol?: Monthly or less (three times a month) 2. How many drinks containing alcohol do you have on a typical day when you are drinking?: 1 or 2 3. How often do you have six or more drinks on one occasion?: Never Total Score: 1 TROY-7 AMB Questionnaire TROY-7 Date TROY - 7 assessed: 08/03/24 Source: Developed by Drs. Jake Mcdonald, Lucero Abrams, Iraj Lopez and colleagues, with an educational tiara from [employer]. Physical exam (Primary Care) Vital Signs: Last Vital Signs Temp 98.8 F 10/13/24 08:55 Pulse 68 10/13/24 08:55 Resp 14 10/13/24 08:55 BP 108/68 10/13/24 08:55 Pulse Ox 97 10/13/24 08:55 Oxygen Delivery Method Room Air 10/13/24 08:55 BMI result Body Mass Index 30.4 Tobacco/Smoking Status: Tobacco use Status Tobacco use date assessed 10/13/24 10/13/24 08:57 Patient Tobacco Use Status Never used Tobacco 10/13/24 08:57 e-Cigarette/Vaping Use Never Used 10/13/24 08:57 Thrive Assessment: Date of Thrive Assessment Date Thrive assessed 07/21/24 10/13/24 08:57 Currently or been in a relationship where the following occur: No concerns reported Const Orientation/consciousness: patient oriented x3 HENMT Ears: hearing grossly normal bilaterally Neck Thyroid: Thyroid normal Lymphatic: no lymphadenopathy noted Resp Auscultation: clear to auscultation bilaterally Cardio Rate: regular rate Rhythm: regular rhythm Heart sounds: S1 normal heart sound present and S2 normal heart sound present GI Inspection: Yes normal to inspection Palpation (GI): Soft to palpation and Other GI palpation findings present (nontender, no cva tenderness) Auscultation: normoactive bowel sounds Rectal Exam - Female: deferred Skin General skin exam: no rashes or lesions noted Neuro General: patient oriented x3, gait normal and no focal motor deficits Coding Level of Care Code Est Pt Level 3 (46144) Complex EM visit Add On [id number] Diagnoses ADD (attention deficit disorder) F98.8 Assessment & Plan Assessment & Plan (1) ADD (attention deficit disorder): Code(s): F98.8 - Other specified behavioral and emotional disorders with onset usually occurring in childhood and adolescence Category: Medical Plan: increase vyvanse to 40 mg f/u 3 months or sooner prn Medications: New lisdexamfetamine (Vyvanse) Partial Fill upon patient request. 40 mg PO QAM 30 caps 0RF Discontinued lisdexamfetamine (Vyvanse) Partial Fill upon patient request. Discontinued Reason: Doctor's Order 30 mg PO QAM 30 days 30 caps 0RF
[2024-10-13 08:55] VITALS: BP 108/68; PULSE 68; RESP 14; TEMP 37.1; O2SAT 97; BMI 30.4
--- OUTSIDE RECORDS SUMMARY | 2024-10-13 09:08 | XMS_ITS | Data Portability ---
Author Organization [facility], [facility] Address [address] [place] [address] Care Team Providers Care Facility Service Manager Name Role Phone RADHA ALLEN Primary Care Provider Assessment Encounter Date Assessment Date Assessment LastModified by Organization Details LastModified Time 01/20/2024 01/20/2024 HISTORY AND PHYSICAL Patient date of :2000 Admitting diagnosis:Right knee ACL graft tear Planned procedure:Right knee arthroscopy with revision ACL reconstruction using autogenous quadriceps Surgeon: Andrew Ivory M.D. HPI:Right knee arthroscopy, revision ACL [id number]- year-old woman status post right knee ACL [...] an informed choice to proceed with surgery. chris Not available 01/20/2024 09:54:33 Plan of Treatment [...] Taping at your discretio n. 2023 024 olvin [facility] [place], [address], [address], [place], [address], 4 11:58:12 Procedures None recorded. Surgeries None recorded. Imaging XR, knee, 4 or more view - room 222 right knee 2023 024 [facility], [address], [address], [place], [address], 4 09:00:52 Medication Orders None recorded. Patient TargetsNo targets recorded. Patient InstructionsNo instructions recorded. 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 VMO Strengthening, Hip Abductor, Glute Med Strengthening, Quad & Hamstring Stretching, Patella Mobilization, Olivo Taping at your discretion. Referring Physician: Cade Rai, Orthopedic Surgery, [id number] Encounter Date: 02/10/2024 Results Created Date Observation Date Name Description Value Unit Range Abnormal Flag Note LastModifiedBy Organization Detail LastModifiedTime 11/23/19 24 11/23/2023 XR, knee, 4 or more view http:/ [email or web address] ?Encry pted=s hAaTro YD8dLq bEUv6g %2BXZw aYqtaq 0bqfl% 2Fg9IQ a4ajBk vP9nXo QUaueC m3YtLR FvZlgJ JJ8mAn HZtai3 3v8882 AC0Kra XmCVaX eUC8mr 84%3D INTERFACE [facility] [address], [place], [address], 11/23/2023 09:00:52 11/23/19 24 11/23/2023 XR, knee, 4 or more view http:/ [email or web address] ?Encry pted=s hAaTro YD8dLq bEUv6g %2BXZw aYqtaq 0bqfl% 2Fg9IQ a4ajBk vP9nXo QUaueC m3YtLR FvZlgJ JJ8mAn HZtai3 9i8468 AC0Kra XmCVaX eUC8mr 84%3D INTERFACE [facility] [address], [place], [address], 11/23/2023 09:00:54 11/27/19 24 11/12/2019 imagi ng/di agnos tic resul t No observ ation record ed. [email or web address] Not Available 10/30 21:52:25 11/27/19 24 11/27/2022 imagi ng/di agnos tic resul t No observ ation record ed. [email or web address] Not Available 10/30 21:52:37 Result Notes Documentation Provider Name and Address Organization Details Recorded Time Xr, Knee, 4 Or More View : [email or web address] Encrypted=drYhLziPV3mQkbH Uv6g%3ADIakAkbca8odeo%2Fg 2JWw4ulXzoT8eJoOLjasTs3Ai ZGEoFzzAUN0sCfYKpvo08e832 1YD1YaqNlBNwLfLN4no29%3D Not Available [facility] 11/23/2023 09:0 0:53 Xr, Knee, 4 Or More View : [email or web address] Encrypted=nlZoJrtOL3lIslQ Uv6g%4NFZlmJkqmu7jzdt%2Fg 6XHu9nyDexU5aEaKAbbzWx7Xi CJOqWxvOCP8hQnLCkkl91p897 0LJ3RyvKaRAgWvAO3zc75%3D Not Available [facility] 11/23/2023 09:0 0:55 Problems Name Problem SNOMED Code Status Onset Date Resolution Date Notes Provider Name and Address Organization Details Recorded Time No complaint s 365459043 Active Status: 'I'; Not Available [facility] 4 09:11:53 Sprain of anterior cruciate ligament of knee 575133236 Active 2016 Problem Code: S83.511A ; Problem Code Type: ICD-10; Status: 'A'; Not Available [facility] 4 10:57:41 Chondroma lacia of bilateral patellas 907768859103 Active 2023 Cade Rai PA-C [address], [place], [address] , [facility] 4 07:11:17 Rupture of anterior cruciate ligament of right knee 610806215432 Active 2023 Cade Rai PA-C [address], [place], [address] , [facility] 4 09:34:40 Chondroma lacia of right patella 352328507953 38720 Active 2023 Cade Rai PA-C [address], [place], [address] , [facility] 4 08:33:35 Problem Notes None recorded. Medical Equipment None Reported. [...] Updated DateTime 04/11/2024 172.72 cm 35 kg/m2 765258.25 g 98 [degF] Cade Rai PA-C [address], [place], [address] , [facility] 04/11/2024 08:09:35 Date Recorded Body height Body mass index (BMI) Body weight Provider Name and Address Organization Details Last Updated DateTime 11/23/2023 172.72 cm 35 kg/m2 232376.25 g Cade Rai PA-C [address], [place], [address], [facility] 11/23/2023 08:50:00 Date Recorded Body height Body mass index (BMI) Body weight Heart rate Body temperature Systolic And Diastolic Provider Name and Address Organization Details Last Updated DateTime 172.72 cm 35 kg/m2 499471. 25 g 72 /min 97.2 [degF] 132/77 mm[Hg] Luisa Lanza [facility] 09:16:41 Date Recorded Body height Body mass index (BMI) Body weight Body temperature Provider Name and Address Organization Details Last Updated DateTime 02/10/2024 172.72 cm 35 kg/m2 820285.25 g 98.1 [degF] Cade Rai PA-C [address], [place], [address] , [place] [facility] [place] [facility] 02/10/2024 08:08:10 Social History None recorded. Functional Status None recorded. Mental Status None recorded. Family History Nothing Reported. Medical History No medical history recorded. Gynecological HistoryNo gynecological history recorded. Obstetrics History GPAL:G 0 P 0 0 0 0 Past Encounters Encounter ID Performer Location Encounter Start Date Encounter Closed Date Diagnosis/Indication Diagnosis SNOMED-CT Code Diagnosis ICD10 Code Diagnosis Note [id number] Cade Rai PA-C [facility] [address] [place] [address] 11/23/2023 08:37:45 12/09/2023 12:18:17 Chondromalacia of bilateral patellas 2987876148 9386212 M22.41 Rupture of anterior cruciate ligament of right knee 6892855020 6222864 S83.511A [id number] MD Yahaira Thacker [address] [place] [address] 01/20/2024 09:02:16 02/11/2024 15:34:25 Complete tear, knee, anterior cruciate ligament 916264326 S83.511D [id number] SHILPA [facility] [address] [place] [address] 02/10/2024 07:50:16 03/01/2024 11:58:12 Chondromalacia of right patella 8674636079 3965962 M22.41 [id number] Cade Rai PA-C [facility] [address] [place] [place] [address] 04/11/2024 08:03:33 04/25/2024 16:25:51 History of arthroscopy of knee joint 325816384 Z98.890 Health Concerns Section Related Observation LastModified by Organization Detai ls LastModified Time None Recorded Concern Status LastModified by Organization Details LastModified Time None Recorded Advance Directives Directive None Recorded Payers Insurance Date Sequence Insurance Name Policy Number Policy Oden Covered Member ID Oden Member ID Guarantor Name 04/25/2024 1 [facility] (PPO) [id number] Tha Bear [id number] Tha Bear 11/23/2023 1 [facility] ([place] [id number] Tha Bear [id number] Tha Bear Notes Date Note Type Note Provider Name [...] her from going forward with surgery outlined. [employer] speech recognition divorce lawyer software was used to create portions of this document. An attempt at proofreading has been made to minimize errors. Please call for corrections. Cade Rai PA-C [address], [place], [address], [facility] 11/23/2023 09:35:11 02/10/2024 text/html I am [...] patient remains symptomatic. Cade Rai PA-C [address], [place], [address], [facility] 02/10/2024 13:50:24 04/11/2024 text/html I am [...] to activities. We talked briefly about chondral baptism type procedures in the future if symptoms continue to be problematic but would only do this on elective basis in the future. [facility] speech recognition divorce lawyer software was used to create portions of this document. An attempt at proofreading has been made to minimize errors. Please call for corrections. Cade Rai PA-C [address], [place], [address], [facility] [place] [facility] 04/11/2024 08:38:02 OBGyn Episode No OBEpisode recorded.
--- OUTSIDE RECORDS SUMMARY | 2024-10-13 09:08 | XMS_ITS | Clinical Summary ---
Author Organization [facility] Address [address] [place] [address] Phone Care Team Providers Care Host Hostess Name Role Phone Unavailable Primary Care Provider [...] AM EST Pulse - - Temperature 36.7 C (98 F) 05/12/2019 4:29 PM EST Respiratory Rate - [...] 08/02/2020 08/02/2010, 08/13/2004, 03/08/2001, Additional history exists COVID-19 Vaccine ( season) 2023 03/05/2021, 07/14/2020, 06/23/2020 Influenza Vaccines (#1) 2024 02/20/20 20, 12/15/2014, 12/14/2013, Additional history exists Hepatitis B Vaccines Completed 05/05/2000, 1999, 1999 [...] Men B Vaccine Aged Out No longer амринаg linda based on patient's age to complete this topic Procedures * Due to [facility] law, this organization might not be sharing sensitive test results. Procedure Name Priority Date/Time Associated Diagnosis Comments CHLAMYDIA AND GONORRHEA, AMPLIFIED Routine 02/20/2020 9:35 AM EST Encounter for screening examination for sexually transmitted disease from Last 3 Months or Most Recently Relevant to Health Maintenance Results * Due to [place] [employer] law, this organization might not be sharing sensitive test results. * Chlamydia and Gonorrhoea, Amplified (02/20/2020 9:35 AM EST) Chlamydia Trachomatis, DNA Probe NEGATIVE (NEG) [facility] Comment: No Chlamydia Trachomatis RNA detected in this patient's sample (REFERENCE RANGE/NORMAL VALUE: NOT DETECTED) Note: This test uses heel scorer- mediated amplification method to detect rRNA from C. Trachomatis URINE GC AMP PROBE NEGATIVE (NEG) [facility] Comment: No Neisseria Gonorrhoeae RNA detected in this patient's sample (REFERENCE RANGE/NORMAL VALUE: NOT DETECTED) NOTE: This test uses heel scorer-mediated amplification method to detect rRNA from N.Gonorrhoeae. [...] without risk of sexual abuse. Consult the [facility] if needed. Contact phone number . Therapeutic failure or success cannot be determined with the Aptima Combo2 assay since nucleic acid may persist following appropriate antimicrobial therapy. The Centers for Disease Control and Prevention (CDC) recommends confirmatory retesting using culture or a different nucleic acid amplification test when positive results occur, if indicated. Testing performed or reported by [facility], a Service of [facility], [address] [place] [address] [place] [address] Scottie Baig MD, Campus Police Officer Urine (Urine) 02/20/2020 9:3 5 AM EST 02/20/2020 8:52 PM EST Cassidy Garner MD LAB MICROBIOLOGY - GENERAL O RDERABLES Final Result [facility] from Last 3 Months or Most Recently Relevant to Health Maintenance Insurance [place] [employer] [facility]
== END 2024-10-13 09:14 | disposition home or self-care (01) ==
LOC: HO.HMCFM 08:51
PROVIDERS: PCP Physician Assistant; Visit Provider Physician Assistant
DX: F98.8 Other specified behavioral and emotional disorders with onset usually occurring in childhood and adolescence (principal)

== ENCOUNTER 2025-01-12 07:57 | Outpatient (AMB) | payer OTHER, SELFPAY ==
--- OUTSIDE RECORDS SUMMARY | 2025-01-12 08:01 | XMS_ITS | Encounter Summary ---
Author Organization [facility] Address [address] [place] [address] Phone Care Team Providers Care Manager Online Name Role Phone Berta Donaldson NP Primary Care Provider [phone] Encounter Details Date Type Department Care Team (Late st Contact Info) Description 08/16/2017 Conversion [facility]counter [facility] [address] [place] [address] Social History Tobacco Use Types Packs/Day Years [...] filedocumented in this encounter Care Teams Manager Online Relationship Specialty Start Date End Date Berta Donaldson NP [address] [place] [address] PCP - General Pediatrics 09/23/18 05/10/24 documented as of this encounter
--- OUTSIDE RECORDS SUMMARY | 2025-01-12 08:01 | XMS_ITS | Clinical Summary ---
Author Organization [facility] Address [address] [place] [address] Phone Care Team Providers Care Director Of Campus Recreation Name Role Phone Unavailable Primary Care Provider [...] 03/08/2001, Additional history exists Influenza Vaccines (#1) 2024 02/20/20 20, 12/15/2014, 12/14/2013, Additional history exists COVID-19 Vaccine ( season) 2024 03/05/2021, 07/14/2020, 06/23/2020 Hepatitis B Vaccines Completed [...] Men B Vaccine Aged Out No longer homar mckeon based on patient's age to complete this topic Procedures * Due to [facility] law, this organization might not be sharing sensitive test results. Procedure Name Priority Date/Time Associated Diagnosis Comments CHLAMYDIA AND GONORRHEA, AMPLIFIED Routine 02/20/2020 9:35 AM EST Encounter for screening examination for sexually transmitted disease from Last 3 Months or Most Recently Relevant to Health Maintenance Results * Due to [place] [employer] law, this organization might not be sharing sensitive test results. * Chlamydia and Gonorrhoea, Amplified (02/20/2020 9:35 AM EST) Chlamydia Trachomatis, DNA Probe NEGATIVE (NEG) [facility] Comment: No Chlamydia Trachomatis RNA detected in this patient's sample (REFERENCE RANGE/NORMAL VALUE: NOT DETECTED) Note: This test uses heat treat supervisor- mediated amplification method to detect rRNA from C. Trachomatis URINE GC AMP PROBE NEGATIVE (NEG) [facility] Comment: No Neisseria Gonorrhoeae RNA detected in this patient's sample (REFERENCE RANGE/NORMAL VALUE: NOT DETECTED) NOTE: This test uses heat treat supervisor-mediated amplification method to detect rRNA from N.Gonorrhoeae. [...] without risk of sexual abuse. Consult the [facility] if needed. Contact phone number . Therapeutic failure or success cannot be determined with the Aptima Combo2 assay since nucleic acid may persist following appropriate antimicrobial therapy. The Centers for Disease Control and Prevention (CDC) recommends confirmatory retesting using culture or a different nucleic acid amplification test when positive results occur, if indicated. Testing performed or reported by [facility], a Service of [facility], [address] [place] [address] [place] [address] Scottie Baig MD, Setter Off Urine (Urine) 02/20/2020 9:3 5 AM EST 02/20/2020 8:52 PM EST Cassidy Garner MD LAB MICROBIOLOGY - GENERAL O RDERABLES Final Result [facility] from Last 3 Months or Most Recently Relevant to Health Maintenance Insurance [place] [employer] [facility]
--- OUTSIDE RECORDS SUMMARY | 2025-01-12 08:01 | XMS_ITS | Data Portability ---
Author Organization [facility], [facility] Address [address] [place] [address] Care Team Providers Care Custodian Supervisor Name Role Phone RADHA ALLEN Primary Care Provider Assessment Encounter Date Assessment Date Assessment LastModified by Organization Details LastModified Time 01/20/2024 01/20/2024 HISTORY AND PHYSICAL Patient date of :2000 Admitting diagnosis:Right knee ACL graft tear Planned procedure:Right knee arthroscopy with revision ACL reconstruction using autogenous quadriceps Surgeon: Andrew Ivory M.D. HPI:Right knee arthroscopy, revision ACL [id number]- year-old woman status post right knee ACL [...] at your discretio n. 2023 024 [facility] [place], [address], [place], [address], 4 11:58:12 Procedures None recorded. Surgeries None recorded. Imaging XR, knee, 4 or more view - room 222 right knee 2023 024 [facility], [address], [address], [place], [address], 4 09:00:52 Medication Orders None recorded. Patient TargetsNo targets recorded. Patient InstructionsNo instructions recorded. 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 VMO Strengthening, Hip Abductor, Glute Med Strengthening, Quad & Hamstring Stretching, Patella Mobilization, Olivo Taping at your discretion. Referring Physician: Cade Rai, Orthopedic Surgery, [id number] Encounter Date: 02/10/2024 Results Created Date Observation Date Name Description Value Unit Range Abnormal Flag Note LastModifiedBy Organization Detail LastModifiedTime 11/23/19 24 11/23/2023 XR, knee, 4 or more view http:/ [email or web address] ?Encry pted=s hAaTro YD8dLq bEUv6g %2BXZw aYqtaq 0bqfl% 2Fg9IQ a4ajBk vP9nXo QUaueC m3YtLR FvZlgJ JJ8mAn HZtai3 2e7434 AC0Kra XmCVaX eUC8mr 84%3D INTERFACE [facility] [address], [place], [address], 11/23/2023 09:00:52 11/23/19 24 11/23/2023 XR, knee, 4 or more view http:/ [email or web address] ?Encry pted=s hAaTro YD8dLq bEUv6g %2BXZw aYqtaq 0bqfl% 2Fg9IQ a4ajBk vP9nXo QUaueC m3YtLR FvZlgJ JJ8mAn HZtai3 5l6352 AC0Kra XmCVaX eUC8mr 84%3D INTERFACE [facility] [address], [place], [address], 11/23/2023 09:00:54 11/27/19 24 11/12/2019 imagi ng/di agnos tic resul t No observ ation record ed. [email or web address] Not Available 10/30 21:52:25 11/27/19 24 11/27/2022 imagi ng/di agnos tic resul t No observ ation record ed. [email or web address] Not Available 10/30 21:52:37 Result Notes Documentation Provider Name and Address Organization Details Recorded Time Xr, Knee, 4 Or More View : [email or web address] Encrypted=bqCrZvsVU0qLkxH Uv6g%3FCUyiIbagp3ydcw%2Fg 3IHc4xhKysQ5iZeEPpegUg5Af KSAhRkuZGQ0yNbWSwhs31u686 4SN4VliHhJXiJqBT9tq33%3D Not Available [facility] 11/23/2023 09:0 0:53 Xr, Knee, 4 Or More View : [email or web address] Encrypted=qcCsMilDI6hMsaC Uv6g%4YQAhrXmilu1dour%2Fg 1DJt9ceQsbI2lRpXJgmaXy7Qq CGVgWodCLY6nJkBHjsw69u667 8EE5AmvDjWVdVgIM0vw10%3D Not Available [facility] 11/23/2023 09:0 0:55 Problems Name Problem SNOMED Code Status Onset Date Resolution Date Notes Provider Name and Address Organization Details Recorded Time No complaint s 923971214 Active Status: 'I'; Not Available [facility] 4 09:11:53 Sprain of anterior cruciate ligament of knee 131006429 Active 2016 Problem Code: S83.511A ; Problem Code Type: ICD-10; Status: 'A'; Not Available [facility] 4 10:57:41 Chondroma lacia of bilateral patellas 403139951127 Active 2023 Cade Rai PA-C [address], [place], [address] , [facility] 4 07:11:17 Rupture of anterior cruciate ligament of right knee 965653279919 Active 2023 Cade Rai PA-C [address], [place], [address] , [facility] 4 09:34:40 Chondroma lacia of right patella 568440273683 84411 Active 2023 Cade Rai PA-C [address], [place], [address] , [facility] 4 08:33:35 Problem Notes [...] Updated DateTime 04/11/2024 172.72 cm 35 kg/m2 929260.25 g 98 [degF] Cade Rai PA-C [address], [place], [address] , [facility] 04/11/2024 08:09:35 Date Recorded Body height Body mass index (BMI) Body weight Provider Name and Address Organization Details Last Updated DateTime 11/23/2023 172.72 cm 35 kg/m2 697616.25 g Cade Rai PA-C [address], [place], [address], [facility] 11/23/2023 08:50:00 Date Recorded Body height Body mass index (BMI) Body weight Heart rate Body temperature Systolic And Diastolic Provider Name and Address Organization Details Last Updated DateTime 172.72 cm 35 kg/m2 585724. 25 g 72 /min 97.2 [degF] 132/77 mm[Hg] Luisa Lanza [facility] 09:16:41 Date Recorded Body height Body mass index (BMI) Body weight Body temperature Provider Name and Address Organization Details Last Updated DateTime 02/10/2024 172.72 cm 35 kg/m2 382571.25 g 98.1 [degF] Cade Rai PA-C [address], [place], [address] , [place] [facility] 02/10/2024 08:08:10 Social History None recorded. Functional Status None recorded. Mental Status None recorded. Family History Nothing Reported. Medical History No medical history recorded. Gynecological HistoryNo gynecological history recorded. Obstetrics History GPAL:G 0 P 0 0 0 0 Past Encounters Encounter ID Performer Location Encounter Start Date Encounter Closed Date Diagnosis/Indication Diagnosis SNOMED-CT Code Diagnosis ICD10 Code Diagnosis IMO Codes Diagnosis Note [id number] Cade Rai PA-C [facility] [address] [place] [address] 11/23/2023 08:37:45 12/09/2023 12:18:17 Chondromalacia of bilateral patellas 3557672843 3450956 M22.41 Rupture of anterior cruciate ligament of right knee 8484343089 2122819 S83.511A [id number] MD Yah[facility]a [facility] [address] [place] [address] 01/20/2024 09:02:16 02/11/2024 15:34:25 Complete tear, knee, anterior cruciate ligament 788751385 S83.511D 73235467 [id number] SHILPA [facility] [address] [place] [address] 02/10/2024 07:50:16 03/01/2024 11:58:12 Chondromalacia of right patella 0311437813 1688344 M22.41 [id number] Cade Rai PA-C [facility] [address] [place] [address] 04/11/2024 08:03:33 04/25/2024 16:25:51 History of arthroscopy of knee joint 002461756 Z98.890 573715 Health Concerns Section Related Observation LastModified by Organization Detai ls LastModified Time None Recorded Concern Status LastModified by Organization Details LastModified Time None Recorded Advance Directives Directive None Recorded Payers Insurance Date Sequence Insurance Name Policy Number Policy Oden Covered Member ID Oden Member ID Guarantor Name 04/25/2024 1 [facility] ([id number]) [id number] Tha Bear [id number] Tha Bear 11/23/2023 1 [facility] (PPO) [id number] Tha Bear [id number] Tha Bear Notes Date Note Type [...] her from going forward with surgery outlined. [employer] speech recognition sleeping car service attendant software was used to create portions of this document. An attempt at proofreading has been made to minimize errors. Please call for corrections. Cade Rai PA-C [address], [place], [address], [facility] 11/23/2023 09:35:11 02/10/2024 text/html I am [...] patient remains symptomatic. Cade Rai PA-C [address], [place], [address], [facility] 02/10/2024 13:50:24 04/11/2024 text/html I am [...] to activities. We talked briefly about chondral caodaism type procedures in the future if symptoms continue to be problematic but would only do this on elective basis in the future. [facility] speech recognition sleeping car service attendant software was used to create portions of this document. An attempt at proofreading has been made to minimize errors. Please call for corrections. Cade Rai PA-C [address], [place], [address], [facility] 04/11/2024 08:38:02 OBGyn Episode No OBEpisode recorded.
[2025-01-12 08:05] VITALS: PULSE 89; RESP 15; TEMP 36.4; O2SAT 100
--- NOTE | 2025-01-12 08:05 | MHC.OFFWIV ---
Intake Vital Signs 01/12/25 08:05 Height 5 ft 7 in Respiration 15 Pulse 89 Pulse Source Pulse Oximeter Temp 97.5 F Temp Source Oral Pulse Oximetry (%) 100 Oxygen Delivery Method Room Air Intake Visit Reasons: ep exposed to mites Intake Note: Pt is here today c/o raised bumps rash due to dog dx's with mites Patient Tobacco Use Status: Never used Tobacco Allergies No Known Allergies Allergy (Verified 01/12/25 08:12) HPI HPI Comments History of Present Illness Details History - The patient is a 24-year-old female presenting with concerns about potential mites. - The issue began after the patient's dog was diagnosed with mites, and subsequently, her parents developed rashes confirmed to be due to mites. - The patient reports no rash but has noticed a couple of small, itchy bumps. - The patient is aware that the oral medication prescribed to her parents is not typically covered by insurance, but her father's insurance does cover it. - The prescribed treatment involves taking it initially and a second dose two weeks later, with the patient becoming non-contagious 24 hours after the first dose. - She denies joint pain, fever, chills, CP, SOB, wheezing, SOOD. Physical Exam General: Cooperative, healthy appearing, comfortable, no acute distress and well developed Orientation: Patient oriented x3 Limitations: No limitations Mouth: normal, moist oral mucosa Neck: Normal visual inspection and Yes full ROM Respiratory: Normal respiratory effort and able to speak in complete sentences. Clear to auscultation bilaterally. No w/r/r noted. Cardiovascular: RRR, no m/r/g noted. Normal S1 and S2 Skin: Multiple small bites noted on the lateral hips bilaterally. Patient was informed and verbally consented to the use of an ambient scribe for clinic note documentation during this visit [facility] Medical History Recurrent herpes labialis Obesity, Class I, BMI 30-34.9 Family History (Updated 10/07/23 @ 09:29 by Khushbu Alonzo CMA) Maternal Aunt No problems noted. 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 Current occupational exposures/hazards: No Cognitive needs: No Hearing needs: No Vision needs: No Review of Systems Const All systems reviewed & are unremarkable except as noted in HPI and below Physical Exam Vital Signs: Last Vital Signs Temp 97.5 F 01/12/25 08:05 Pulse 89 01/12/25 08:05 Resp 15 01/12/25 08:05 Pulse Ox 100 01/12/25 08:05 Oxygen Delivery Method Room Air 01/12/25 08:05 Assessment & Plan Assessment & Plan (1) Rash: Code(s): R21 - Rash and other nonspecific skin eruption (2) Infestation, mites: Code(s): B88.9 - Infestation, unspecified Plan Most likely mites from her dog Plan - The patient should continue monitoring for any development of rash or worsening of symptoms. - Consideration of oral medication similar to her parents' treatment if symptoms develop, ensuring insurance coverage is verified. - The patient should follow up if symptoms persist or worsen despite preventive measures. Medications: New ivermectin 12 mg (2 x 6 mg) PO Q2W 4 tabs 0RF 2 doses Coding Level of Care Code Est Pt Level 3 (80799) Diagnoses Rash R21 Infestation, mites B88.9
== END 2025-01-12 09:03 | disposition home or self-care (01) ==
PROVIDERS: PCP Physician Assistant; Visit Provider Physician Assistant Medical
DX: R21 Rash and other nonspecific skin eruption (principal); B88.9 Infestation, unspecified